=== PATIENT | female | born 1950 ===

== ENCOUNTER 2019-01-13 09:57 | Day surgery (SDC) | payer OTHER ==
[~2019-01-13 09:57] MED LIST: ALENDRONATE SOD70 MG PO; AMANTADINE100 MG PO; ASPIR 8181 MG PO; CARBIDOPA-LEVO1 EAC4 PO; HYZAAR 100-12.1 EACH PO; LASIX20 MG PO; LEXAPRO5 MG PO; LIPITOR40 MG PO; LODOSYN25 MG PO; MIRAPEX ER1.5 MG PO; SYNTHROID50 MCG PO
== END 2019-01-13 15:30 | disposition home or self-care (01) ==
LOC: CIR.AMB 09:57
DX: M75.121 Complete rotator cuff tear or rupture of right shoulder, not specified as traumatic (principal); M75.32 Calcific tendinitis of left shoulder